=== PATIENT | male | born 1965 | race Caucasian/White ===

== ENCOUNTER → 2020-05-13 | Outpatient (CLI) | payer OTHER ==
--- NOTE | 2020-05-13 18:13 | RAD ---
SHOULDER 2+V LEFT History: Reason: Severe left shoulder pain / Spl. Instructions: / History: Technique: 3 views left shoulder. Comparison: None. Findings: Normal alignment of the glenohumeral and acromial clavicular joint. No fracture. Mild acromioclavicular DJD. Impression: 1. No acute osseous abnormality. Electronically signed by: Wiley Gonzalez DO (05/13/2020 6:10 PM) [facility]
== END | disposition home or self-care (01) ==
LOC: PMG 17:48
PROVIDERS: ATTEND Family Medicine
DX: M19.012 Primary osteoarthritis, left shoulder (principal); Z68.25 Body mass index [BMI] 25.0-25.9, adult
CPT/HCPCS: 73030

== ENCOUNTER → 2022-03-08 | Outpatient (CLI) | payer OTHER ==
--- NOTE | 2022-03-08 16:20 | RAD ---
XR CHEST 2V INDICATION: COUGH x3 WKS. / Spl. Instructions: / History: . COMPARISON STUDY: None. FINDINGS: Lungs: Normal lung volume. No pulmonary mass or consolidation. The tracheobronchial tree and hilar st ructures are normal. Pleura: No pleural effusion or pneumothorax. Heart and Mediastinum: The cardiomediastinal silhouette is normal. The great vessels of the thorax ar e normal. Bones and Soft Tissues: The bones and soft tissues are within normal limits. IMPRESSION: No acute cardiopulmonary process. Electronically signed by: Hal Mccauley MD (03/08/2022 4:18 PM) [id number]
== END ==
LOC: RAD 15:10
PROVIDERS: ATTEND Family Medicine
DX: R05.3 Chronic cough (principal)
CPT/HCPCS: 71046